=== PATIENT | female | born 1995 | race American Indian/Alaskan Native ===

== ENCOUNTER 2017-02-08 05:56 | Emergency (ER) | payer SELFPAY ==
[2017-02-08 06:20] VITALS: BP 116/65; PULSE 79; RESP 16; TEMP 97.9; O2SAT 100
[2017-02-08] MEDS ORDERED: Alum-Mag Hydrox-Simethicone Susp (30 mL) PO STA (06:55)
--- NOTE | 2017-02-08 06:57 | ED PDOC ---
HPI: Chest Pain Time Seen by Provider: 02/08/17 06:50 Chief Complaint (Nursing): Chest Pain Chief Complaint (Provider): chest pain History Per: Patient History/Exam Limitations: no limitations Onset/Duration Of Symptoms: Days (1) Current Symptoms Are (Timing): Still Present Additional Complaint(s): 21yo female who is an active smoker presents to the ED with c/o chest pain since yesterday. Patient reports yesterday while drinking alcohol she developed mid-sternal chest pain that was non-radiating. No associated SOB or diaphoresis. States it may be gas or related to recent stomach bug she had when she was vomiting a lot. Past Medical History Reviewed: Historical Data, Nursing Documentation, Vital Signs Vital Signs: Last Vital Signs Temp 97.9 F 02/08/17 06:18 Pulse 79 02/08/17 06:18 Resp 16 02/08/17 06:18 BP 116/65 02/08/17 06:18 Pulse Ox 100 02/08/17 08:02 - Medical History PMH: No Chronic Diseases - Surgical History Surgical History: No Surg Hx - Family History Family History: States: No Known Family Hx - Social History Current smoker - smoking cessation education provided: Yes Alcohol: Occasional - Allergies Allergies/Adverse Reactions: Allergies Allergy/AdvReac Type Severity Reaction Status Date / Time peanut Allergy Intermediate rash and Verified 02/08/17 06:21 swelling milk Allergy Mild DIARRHEA Verified 02/08/17 06:21 strawberry Allergy Mild RASH Verified 02/08/17 06:21 Review of Systems ROS Statement: Except As Marked, All Systems Reviewed And Found Negative Constitutional: Positive for: Other (no diaphoresis ) Cardiovascular: Positive for: Chest Pain Respiratory: Negative for: Shortness of Breath Physical Exam - Reviewed Nursing Documentation Reviewed: Yes Vital Signs Reviewed: Yes - Physical Exam Appears: Positive for: Well, No Acute Distress Head Exam: Positive for: ATRAUMATIC, NORMAL INSPECTION, NORMOCEPHALIC Skin: Positive for: Normal Color, Warm, Dry Eye Exam: Positive for: Normal appearance, EOMI, PERRL ENT: Positive for: Normal ENT Inspection Neck: Positive for: Normal, Painless ROM, Supple Cardiovascular/Chest: Positive for: Regular Rate, Rhythm. Negative for: Murmur , Tachycardia Respiratory: Positive for: Normal Breath Sounds. Negative for: Wheezing, Respiratory Distress Gastrointestinal/Abdominal: Positive for: Normal Exam, Bowel Sounds, Soft. Negative for: Tenderness Back: Positive for: Normal Inspection. Negative for: L CVA Tenderness, R CVA Tenderness Extremity: Positive for: Normal ROM. Negative for: Deformity, Swelling Neurologic/Psych: Positive for: Alert, Oriented. Negative for: Motor/Sensory Deficits - ECG ECG: Positive for: Interpreted By Me, Viewed By Me ECG Rhythm: Positive for: Sinus Rhythm (NSR, no ST or T wave changes ) O2 Sat by Pulse Oximetry: 100 Pulse Ox Interpretation: Normal (RA) Medical Decision Making Medical Decision Makin: Impression: gastritis Plan: Lidocaine 2% viscous 15ml PO, Maalox 30ml PO, Pepcid 20mg PO CXR reassess Pt s/o to Dr. Pillai at 0700 pending CXR and symptom improvement. Scribe Attestation: Documented by Kandace Maloney acting as a scribe for Byron Marshall MD. Provider Scribe Attestation: All medical record entries made by the Scribe were at my direction and personally dictated by me. I have reviewed the chart and agree that the record accurately reflects my personal performance of the history, physical exam, medical decision making, and the department course for this patient. I have also personally directed, reviewed, and agree with the discharge instructions and disposition. Disposition - Clinical Impression Clinical Impression: Chest pain - Patient ED Disposition Is Patient to be Admitted: Transfer of Care - Disposition Referrals: [facility] [Outside] Disposition: Transfer of Care Disposition Time: 07:00 Condition: GOOD Additional Instructions: Take antacid over the counter. Follow up with your PCP in 2-3 days. Instructions: Chest Pain (ED) Patient Signed Over To: Marcial Pillai Handoff Comments: pending CXR and symptom improvement
[2017-02-08] MEDS ORDERED: Alum-Mag Hydrox-Simethicone Susp (30 mL) ONE (07:08)
--- NOTE | 2017-02-08 07:13 | ED PDOC ---
- ECG O2 Sat by Pulse Oximetry: 100 - Radiology X-Ray: Interpreted by Me, Viewed By Me X-Ray Interpretation: No Acute Disease - Progress Re-evaluation Time: 07:56 Condition: Re-examined, Improved Medical Decision Making Medical Decision Making: Time: 0700 Patient signed out by Dr. Marshall pending CXR and re-evaluation Scribe Attestation: Documented by Rosetta Tran acting as a scribe for Marcial Pillai MD MD Scribe Attestation: All medical record entries made by the Scribe were at my direction and personally dictated by me. I have reviewed the chart and agree that the record accurately reflects my personal performance of the history, physical exam, medical decision making, and the department course for this patient. I have also personally directed, reviewed, and agree with the discharge instructions and disposition. Disposition - Clinical Impression Clinical Impression: Chest pain - POA Present On Arrival: None - Disposition Referrals: [facility] [Outside] Disposition: Routine/Home Disposition Time: 07:56 Condition: GOOD Additional Instructions: Take antacid over the counter. Follow up with your PCP in 2-3 days. Instructions: Chest Pain (ED)
--- NOTE | 2017-02-08 13:28 | RAD ---
HISTORY: cp COMPARISON: No prior. TECHNIQUE: Chest PA and lateral FINDINGS: LUNGS: No active pulmonary disease. PLEURA: No significant pleural effusion identified. No pneumothorax apparent. CARDIOVASCULAR: Normal. OSSEOUS STRUCTURES: No significant abnormalities. VISUALIZED UPPER ABDOMEN: Normal. OTHER FINDINGS: None. IMPRESSION: No active disease.
== END 2017-02-08 08:05 | disposition home or self-care (01) ==
LOC: H.ER 05:56
DX: R07.9 Chest pain, unspecified (principal)

== ENCOUNTER 2017-02-22 09:26 | Emergency (ER) | payer MEDICAID ==
[2017-02-22 09:43] VITALS: BP 133/70; PULSE 91; TEMP 98
[2017-02-22 09:44] VITALS: BMI 24.7
[2017-02-22 09:58] VITALS: O2SAT 98
--- NOTE | 2017-02-22 10:27 | ED PDOC ---
HPI: CCC, URI, Sore Throat Time Seen by Provider: 02/22/17 10:13 Chief Complaint (Nursing): ENT Problem Chief Complaint (Provider): my throat feels tight History Per: Patient History/Exam Limitations: no limitations Onset/Duration Of Symptoms: Hrs (2) Current Symptoms Are (Timing): Still Present Location Of Pain: Throat Sick Contacts (Context): None Associated Symptoms: Sore Throat (mild). denies: Neck Pain, Sinus Drainage, Myalgias, Nasal Congestion, Nausea, Vomiting, Diarrhea Ear Symptoms: Left: None, Right: None Severity: Mild Additional Complaint(s): 21yo female states she got into an argument w her boss and felt throat tightness , has also been experiencing mild sore throat and concerned about "bumps" on posterior tongue. Has been experiencing mild posterior dental pain as her wisdom teeth are breaking through, has not seen dentist or OMFS. Denies drooling , fever, change in voice, syncope, neck pain or weakness. Past Medical History Reviewed: Historical Data, Nursing Documentation, Vital Signs Vital Signs: Last Vital Signs Temp 98 F 02/22/17 09:42 Pulse 91 H 02/22/17 09:42 Resp BP 133/70 02/22/17 09:42 Pulse Ox 98 02/22/17 10:35 - Medical History PMH: No Chronic Diseases - Surgical History Surgical History: No Surg Hx - Family History Family History: States: Unknown Family Hx - Living Arrangements Living Arrangements: With Family - Social History Current smoker - smoking cessation education provided: Yes - Home Medications Home Medications: Ambulatory Orders Medication Instructions Recorded Ibuprofen [Motrin Tab] 400 mg PO Q6 PRN #12 tab 02/22/17 - Allergies Allergies/Adverse Reactions: Allergies Allergy/AdvReac Type Severity Reaction Status Date / Time peanut Allergy Intermediate rash and Verified 02/22/17 09:56 swelling milk Allergy Mild DIARRHEA Verified 02/22/17 09:56 strawberry Allergy Mild RASH Verified 02/22/17 09:56 Review of Systems Constitutional: Negative for: Fever, Chills ENT: Positive for: Throat Pain, Throat Swelling. Negative for: Ear Pain, Ear Discharge Cardiovascular: Negative for: Chest Pain, Palpitations Respiratory: Negative for: Cough, Shortness of Breath Gastrointestinal: Negative for: Nausea, Vomiting Genitourinary Female: Negative for: Dysuria, Frequency Musculoskeletal: Negative for: Neck Pain, Shoulder Pain Skin: Negative for: Rash, Lesions, Jaundice Neurological: Negative for: Weakness, Numbness Physical Exam - Reviewed Nursing Documentation Reviewed: Yes Vital Signs Reviewed: Yes - Physical Exam Appears: Positive for: Well, Non-toxic, No Acute Distress Head Exam: Positive for: ATRAUMATIC, NORMAL INSPECTION, NORMOCEPHALIC Skin: Positive for: Normal Color, Warm, DRY Eye Exam: Positive for: EOMI, Normal appearance, PERRL ENT: Positive for: Normal ENT Inspection, Pharynx Is (patent; ), Other (mildly enlarged papillae posterior tongue symmetric; b/l wisdom teeth crowing through skin no erythema, edema or pustulence). Negative for: Tonsillar Swelling Neck: Positive for: Normal, Painless ROM Cardiovascular/Chest: Positive for: Regular Rate, Rhythm Respiratory: Positive for: CNT, Normal Breath Sounds Extremity: Positive for: Normal ROM. Negative for: Deformity Neurologic/Psych: Positive for: Alert, Oriented. Negative for: Motor/Sensory Deficits - ECG O2 Sat by Pulse Oximetry: 98 Medical Decision Making Medical Decision Making: XRay soft tissue neck read by radiology as unremarkable. Strep neg. Remained w normal resp pattern, normal voice and normal swallowing in ED. Referred ENT given smoking history, followup mandatory. Explained all findings and need for followup. Disposition - Clinical Impression Clinical Impression: Throat pain - Patient ED Disposition Is Patient to be Admitted: No Counseled Patient/Family Regarding: Studies Performed, Diagnosis, Need For Followup, Rx Given - Disposition Referrals: Seb Seals MD [Staff Provider] - Disposition: Routine/Home Disposition Time: 12:30 Condition: STABLE Additional Instructions: See oral surgeon or your dentist for evaluation of your wisdom teeth, they may require extraction. Take medications as directed. Return to ER for any worse or new symptoms. See ENT doctor for further testing if symptoms persist. Prescriptions: Ibuprofen [Motrin Tab] 400 mg PO Q6 PRN #12 tab PRN Reason: Pain, Moderate (4-7) Instructions: Pharyngitis (ED)
--- NOTE | 2017-02-22 11:24 | RAD ---
PROCEDURE: Radiographs of the neck (soft tissue). HISTORY: sensation throat tightness COMPARISON: None. TECHNIQUE: Frontal and Lateral Radiographs of the neck, optimized for soft tissue visualization. FINDINGS: SOFT TISSUES: There is no prevertebral soft tissue thickening. There is no radiopaque foreign body. The airways are patent. The epiglottis is normal in appearance. CERVICAL SPINE: There is reversal of normal cervical lordosis. OTHER FINDINGS: None IMPRESSION: No radiopaque foreign body, epiglottitis or prevertebral soft tissue thickening. Reversal of normal cervical lordosis could be related to muscle spasm or may be positional.
== END 2017-02-22 13:17 | disposition home or self-care (01) ==
LOC: H.ER 09:26
DX: J02.9 Acute pharyngitis, unspecified (principal); F17.200 Nicotine dependence, unspecified, uncomplicated

== ENCOUNTER 2017-07-06 19:50 | Emergency (ER) | payer SELFPAY ==
[2017-07-06 19:50] VITALS: BMI 24.7
[2017-07-06 20:04] VITALS: BP 116/66; PULSE 83; RESP 16; TEMP 98.2; O2SAT 100
--- NOTE | 2017-07-06 20:31 | ED PDOC ---
HPI: Chest Pain Time Seen by Provider: 07/06/17 20:12 Chief Complaint (Nursing): Chest Pain Chief Complaint (Provider): Chest Pain History/Exam Limitations: no limitations Onset/Duration Of Symptoms: Hrs Current Symptoms Are (Timing): Still Present Additional Complaint(s): Anastasiia Gibson, a 21 year old female, presents to the ED today with chest pain. The patient states that she had 2 arguments today and right after her chest began to hurt. Patient further states that she wants to get her lungs chest because she smokes(marijuana, Cigarettes) alot. Patient also noted difficulty breathing today associated with a cough productive of green mucous. Past Medical History Reviewed: Historical Data, Nursing Documentation, Vital Signs Vital Signs: Last Vital Signs Temp 98.2 F 07/06/17 20:00 Pulse 83 07/06/17 20:00 Resp 16 07/06/17 20:00 BP 116/66 07/06/17 20:00 Pulse Ox 100 07/06/17 20:36 - Medical History PMH: Anxiety - Family History Family History: States: Unknown Family Hx - Home Medications Home Medications: Ambulatory Orders Medication Instructions Recorded Ibuprofen [Motrin Tab] 400 mg PO Q6 PRN #12 tab 02/22/17 Albuterol HFA [Ventolin HFA 90 2 puff IH Q6 #200 puff 07/06/17 mcg/actuation (8 g)] - Allergies Allergies/Adverse Reactions: Allergies Allergy/AdvReac Type Severity Reaction Status Date / Time peanut Allergy Intermediate rash and Verified 02/22/17 09:56 swelling milk Allergy Mild DIARRHEA Verified 02/22/17 09:56 strawberry Allergy Mild RASH Verified 02/22/17 09:56 codeine Allergy RASH Verified 07/06/17 20:04 promethazine Allergy RASH Verified 07/06/17 20:04 Review of Systems Cardiovascular: Positive for: Chest Pain Respiratory: Positive for: Cough (productive of green mucous), Other ( difficulty breathing) Physical Exam - Reviewed Nursing Documentation Reviewed: Yes Vital Signs Reviewed: Yes - Physical Exam Appears: Positive for: Non-toxic, No Acute Distress Head Exam: Positive for: ATRAUMATIC, NORMAL INSPECTION, NORMOCEPHALIC Skin: Positive for: Normal Color, Warm, Dry, Rash Eye Exam: Positive for: Normal appearance, EOMI, PERRL ENT: Positive for: Normal ENT Inspection Neck: Positive for: Normal, Painless ROM, Supple Cardiovascular/Chest: Positive for: Regular Rate, Rhythm, Chest Non Tender. Negative for: Murmur, Tachycardia Respiratory: Positive for: Normal Breath Sounds. Negative for: Wheezing, Respiratory Distress Gastrointestinal/Abdominal: Positive for: Normal Exam, Bowel Sounds, Soft. Negative for: Tenderness, Mass, Guarding, Rebound Back: Positive for: Normal Inspection. Negative for: L CVA Tenderness, R CVA Tenderness Extremity: Positive for: Normal ROM. Negative for: Tenderness, Pedal Edema, Deformity, Swelling Neurologic/Psych: Positive for: Alert, Oriented. Negative for: Gait - ECG O2 Sat by Pulse Oximetry: 100 (RA) Pulse Ox Interpretation: Normal - Radiology X-Ray: Interpreted by Me X-Ray Interpretation: No Acute Disease Medical Decision Making Medical Decision Makin Initial Plan: 21 year old female presenting with chest pain Initial Plan: * Chest N-Nif-[id number] impression * Reevaluation pt advised to have f.u with pmd.stable appearing in ED given albuterol pump. Scribe Attestation Documented by Martha Gomez acting as a scribe for Angeles Hill PA-C. MD Scribe Attestation All medical record entries made by the Scribe were at my direction and personally dictated by me. I have reviewed the chart and agree that the record accurately reflects my personal performance of the history, physical exam, medical decision making, and the department course for this patient. I have also personally directed, reviewed, and agree with the discharge instructions and disposition. Disposition - Clinical Impression Clinical Impression: Cough - Patient ED Disposition Is Patient to be Admitted: No Counseled Patient/Family Regarding: Studies Performed, Diagnosis, Need For Followup, Rx Given - Disposition Disposition: Routine/Home Disposition Time: 20:55 Condition: STABLE Prescriptions: Albuterol HFA [Ventolin HFA 90 mcg/actuation (8 g)] 2 puff IH Q6 #200 puff Instructions: Viral Syndrome (ED) Forms: [email or web address] ([place])
--- NOTE | 2017-07-07 10:42 | RAD ---
HISTORY: cough COMPARISON: Chest dated 02/08/2017 TECHNIQUE: Chest PA and lateral FINDINGS: LUNGS: No active pulmonary disease. PLEURA: No significant pleural effusion identified. No pneumothorax apparent. CARDIOVASCULAR: Normal. OSSEOUS STRUCTURES: No significant abnormalities. VISUALIZED UPPER ABDOMEN: Normal. OTHER FINDINGS: None. IMPRESSION: No active disease.
== END 2017-07-06 21:09 | disposition home or self-care (01) ==
LOC: H.ER 19:50
DX: B34.9 Viral infection, unspecified (principal); F41.9 Anxiety disorder, unspecified